=== PATIENT | male | born 1970 | race Caucasian/White ===

== ENCOUNTER 2017-10-10 13:27 | Outpatient (CLI) | payer OTHER ==
--- NOTE | 2017-10-10 16:17 | MRI ---
MRI OF THE LEFT KNEE: DATE: 10/10/17. PROVIDED CLINICAL HISTORY: Left knee pain status post injury. FINDINGS: The anterior cruciate ligament, posterior cruciate ligament, medial collateral ligament, and lateral collateral ligamentous complex demonstrate an intact MR appearance. There is high-grade partial-thickness tearing of the quadriceps tendon at its patellar insertion. Th ere is conspicuous marrow edema within the patella, presumably related to this. The superficial/rect us femoris component appears completely disrupted and retracted. The medial and lateral menisci demonstrate no evidence for tear. No focal articular cartilage defect is apparent. Moderate to large knee joint effusion is seen. Regional marrow and muscular signal appear otherwise unremarkable. IMPRESSION: 1. High-grade partial thickness tear involving the quadriceps tendon with full-thickness retracted t earing of the rectus femoris component. Retraction is approximately 3.5 cm. 2. Edema within the patella presumably on the basis of contusion or changes reactive to the quadrice ps tendon injury. 3. Moderate to large knee joint effusion. POS: C
== END 2017-10-10 13:28 | disposition home or self-care (01) ==
LOC: SCSMRI 13:27
PROVIDERS: ATTEND Emergency Medicine
DX: S76.112D Strain of left quadriceps muscle, fascia and tendon, subsequent encounter (principal); M25.462 Effusion, left knee

== ENCOUNTER 2017-10-22 17:17 | Outpatient (CLI) | payer OTHER ==
[2017-10-22 18:10] LABS: #Basophils 0.1 thou/uL (0.0-0.2); #Eosinphils 0.1 thou/uL (0.0-0.7); #Lymphocytes 2.3 thou/uL (1.20-3.40); #Monocytes 0.8 thou/uL (0.11-0.59); #Neutrophils 4.6 thou/uL (1.40-6.50); %Basophils 1.1 % (0.0-1.0); %Eosinophils 1.7 % (0.0-10.0); %Lymphocytes 29.5 % (21.0-51.0); %Monocytes 10.1 % (0.0-10.0); %Neutrophils 57.7 % (42.0-75.0); Hemoglobin 15.3 g/dL (14.0-18.0); Mean Corpuscular Hemoglobin 28.2 pg (27.0-31.0); Mean Corpuscular Volume 85.4 fl (80.0-94.0); Mean Platelet Volume 6.3 fL (7.4-10.4); Platelet Count 331 thou/uL (130-400); RBC Distribution Width 12.1 % (11.5-14.5); Red Blood Cell (RBC) Count 5.43 mill/uL (4.70-6.10)
[2017-10-22 18:34] LABS: Anion Gap 12 mmol/L (10-20); BUN (Urea Nitrogen) 27 mg/dL (8.9-20.6); Calc. Creatinine Clearance 0 mL/min (70-130); Calcium 9.6 mg/dL (7.8-10.44); Carbon Dioxide 27 mmol/L (22-29); Chloride 104 mmol/L (98-107); Estimated GFR-MDRD 70; Glucose 99 mg/dL (70-105); Potassium 4.3 mmol/L (3.5-5.1); Sodium 139 mmol/L (136-145)
--- NOTE | 2017-10-23 20:21 | EKG ---
Test Reason : Blood Pressure : / mmHG Vent. Rate : 062 BPM Atrial Rate : 062 BPM P-R Int : 142 ms QRS Dur : 092 ms QT Int : 418 ms P-R-T Axes : 038 079 009 degrees QTc Int : 424 ms Normal sinus rhythm Incomplete right bundle branch block Abnormal ECG When compared with ECG of 22-OCT-2017 16:48, (Unconfirmed) No significant change was found Confirmed by BECCA MCKEON, . SKika ([id number]) on 10/23/2017 8:21:16 PM Referred By: IERO Confirmed By:DR. Aggie HUDSON MD
== END 2017-10-22 17:18 | disposition home or self-care (01) ==
LOC: LABBT 17:17
PROVIDERS: ATTEND Orthopaedic Surgery
DX: Z01.818 Encounter for other preprocedural examination (principal); S76.112A Strain of left quadriceps muscle, fascia and tendon, initial encounter
CPT/HCPCS: 80048; 85025; 93005; 93010

== ENCOUNTER 2017-10-23 08:20 | Day surgery (SDC) | payer OTHER ==
[2017-10-22 17:26] VITALS: BMI 39.2
[2017-10-23] MEDS ORDERED: CEFAZOLIN/Water 2 GM/20 ML SYRINGE ONE (09:36)
[2017-10-23] MEDS ORDERED: Midazolam HCl 2 mg/2 ml Vial ONE (10:13)
[2017-10-23] MEDS ORDERED: traMADol HCl 50 MG TAB PO PRN ×2 (11:01)
[2017-10-23] MEDS ORDERED: Zolpidem Tartrate 5 MG TAB PO PRN (11:01)
[2017-10-23] MEDS ORDERED: HYDROcodone/Acetaminophen 5/325 mg Tablet PO PRN ×2 (11:01)
[2017-10-23] MEDS ORDERED: Ketorolac Tromethamine 30 MG/ML VIAL IVP PRN (11:01)
[2017-10-23] MEDS ORDERED: Ropivacaine 0.2% 550 ML 550 ML NERVE BLCK SCH (11:01)
[2017-10-23] MEDS ORDERED: Ondansetron HCl/PF 4 MG/2 ML Vial IVP PRN (11:01)
[2017-10-23] MEDS ORDERED: Promethazine HCl 25 MG/ML VIAL IM PRN (11:01)
[2017-10-23] MEDS ORDERED: Fentanyl 100 MCG/2 ML VIAL IV PRN (11:02)
[2017-10-23] MEDS ORDERED: Fentanyl 250 MCG/5 ML VIAL ONE (11:30)
[2017-10-23] MEDS ORDERED: Bupivacaine PF 0.5% 30 ML VIAL ONE (15:12)
[2017-10-23] MEDS ORDERED: Ondansetron HCl/PF 4 MG/2 ML Vial ONE (15:39)
[2017-10-23] MEDS ORDERED: Propofol 200 MG/20 ML VIAL ONE (15:39)
[2017-10-23] MEDS ORDERED: Lidocaine 1% PF 5 ML VIAL ONE (15:39)
[2017-10-23] MEDS ORDERED: PHENYLEPHRINE-NS 100 MCG/ML 10 ML SYRINGE ONE (15:39)
--- NOTE | 2017-10-23 18:11 | OP ---
DATE OF PROCEDURE: 10/23/2017 PREOPERATIVE DIAGNOSIS: Left quadriceps tendon rupture. POSTOPERATIVE DIAGNOSIS: Left quadriceps tendon rupture. PROCEDURE PERFORMED: Open repair of left quadriceps tendon rupture. SURGEON: Jani Cardenas M.D. ESCORT SERVICE ATTENDANT: Frank Fitzpatrick PA-C. BLOOD LOSS: Minimal. COMPLICATIONS: None. ANESTHESIA: He did have a general anesthetic. He had a femoral catheter placed preoperatively. IMPLANTS: We used two Arthrex 4.75 mm BioComposite SwiveLock screws for a primary repair of the tend on. He did go to recovery room in stable condition. INDICATIONS: A 47-year-old male, who about 5 or 6 weeks ago, injured his knee at work. The patient was lifting something fell, searing and sharp pain, and since that time has had difficulty extending his leg and walking normally. MRI scan was found to have a significant tear of portion of his robb ceps tendon. At this time, he wanted to have surgery and repair of this. DESCRIPTION OF PROCEDURE: After all appropriate consent forms were explained and signed, he was take n to the operating room and at this time was given general anesthetic. Once anesthesia was appropria te, the tourniquet was placed on the left thigh and the leg was then prepped and draped in standard s urgical fashion. Limb was then exsanguinated and tourniquet was taken to 300 mmHg. Midline incision was made with a 10 blade down through skin and Bovie was used to coagulate any brisk venous bleeding . A new blade was used to remove the retinaculum and expose the underlying quadriceps musculature an d tendon were inserted into the patella. Grossly, there was no large gap or hole. After palpating, the defect was obviously found and noted. A new blade was used to incise longitudinally to gain acce ss to this defect. In the middle of his defect, a chalky liquid like white substance that goes along with calcific tendonitis was evacuated. The tendon itself was found to be degenerative and degenera tive tendon was removed sharply. Once this area had been debrided, this left us with a full thicknes s tendon defect on the proximal pole of the patella approximately two-thirds of the width of the quad riceps tendon. At this time, we thoroughly irrigated and dried. We removed soft tissue off the prox imal pole of patella. We then used a running #5 Ethibond suture to sew our medial and lateral split together to make the tendon 1 long tendon. At this time, we then took 1 FiberTape along both the med ial and lateral aspect of the tendon up and down in [place] fashion, so that we had 4 strings exiting the tendon edge. We then drilled, tapped, and placed 2 separate 4.75 SwiveLock screws with the Fiber Tape through it for a very gordillo knotless repair. Once this was done, we were able to flex the knee 100 degrees with no gapping, whatsoever. We did use the stitch through the middle of the SwiveLock a nchor to augment our repair. We then thoroughly irrigated and dried. We then ran a Vicryl to close the retinacular level, followed by running Quill suture to close our subdermal and subcuticular skin levels. We then used SurgiSeal skin glue on top of the skin. Once this had dried, a bulky sterile d ressing was applied. Tourniquet was then let down. Toes pinked up nicely. The patient was then marcos sandeep in a long leg knee immobilizer, so that the knee would not bend. The patient was then awakened a nd was taken to the recovery room in stable condition. All counts were correct at the end of the j carlos e and he received preoperative IV antibiotics.
== END 2017-10-23 15:29 | disposition home or self-care (01) ==
LOC: SDC 08:20
PROVIDERS: ATTEND Orthopaedic Surgery
PROC: 0LU Tendons, Supplement (ICD-10-PCS; principal; 2017-10-23)
DX: S76.112A Strain of left quadriceps muscle, fascia and tendon, initial encounter (principal); E66.9 Obesity, unspecified; F17.200 Nicotine dependence, unspecified, uncomplicated; Z68.39 Body mass index [BMI] 39.0-39.9, adult
CPT/HCPCS: A4306; C1713; G8978-GP-CJ; G8979-GP-CJ; G8980-GP-CJ; J2001; J2250; J2405; J2704; J2795; J3010; S0020